=== PATIENT | male | born 1990 | race Caucasian/White ===

== ENCOUNTER 2017-02-28 03:42 | Emergency (ER) | payer OTHER ==
[~2017-02-28] VITALS: Ht 180.3 cm; Wt 72.3 kg
[~2017-02-28 03:42] MED LIST: MOTRIN IB200 MG PO; MOTRIN800 MG PO; NO HOME MEDS; NORCO 5/3251 TABLET PO; TYLENOL WITH C1 EACH PO; VICODIN 5-5001 EACH PO
[2017-02-28] MEDS ORDERED: MOTRIN600 MG PO (04:53)
[2017-02-28] MEDS ORDERED: BACTRIM,SEPT1 TABLET PO (04:53)
[2017-02-28 05:15] VITALS: BP 126/72
== END 2017-02-28 05:19 | disposition home or self-care (01) ==
LOC: EME 03:42
DX: L02.415 Cutaneous abscess of right lower limb (principal); F17.200 Nicotine dependence, unspecified, uncomplicated
CPT/HCPCS: 99281; 99283

== ENCOUNTER 2017-03-01 14:38 | Emergency (ER) | payer OTHER ==
[~2017-03-01] VITALS: Ht 180.3 cm; Wt 72.3 kg
[~2017-03-01 14:38] MED LIST changes: +BACTRIM,SEPT1 TABLET PO; +MOTRIN600 MG PO
[2017-03-01 17:06] VITALS: BP 116/65
== END 2017-03-01 17:06 | disposition home or self-care (01) ==
LOC: EME 14:38
PROC: 0H97XZZ Drainage of Abdomen Skin, External Approach (ICD-10-PCS; principal; 2017-03-01)
DX: L02.211 Cutaneous abscess of abdominal wall (principal); F17.200 Nicotine dependence, unspecified, uncomplicated
CPT/HCPCS: 99281; 99283

== ENCOUNTER 2017-08-19 20:35 | Emergency (ER) | payer OTHER ==
[~2017-08-19] VITALS: Ht 180.3 cm; Wt 75.3 kg
[2017-08-19 21:13] LABS: APPEARANCE CLEAR ((CLEAR)); BILIRUBIN NEGATIVE; BLOOD SMALL; COLOR YELLOW ((YELLOW)); GLUCOSE (STRIP) NEGATIVE; KETONES NEGATIVE; LEUKOCYTES MODERATE; NITRITE NEGATIVE; PROTEIN (STRIP) NEGATIVE; SPECIFIC GRAVITY 1.016 (1.000-1.030); UROBILINOGEN 0.2 MG/DL (0.2-1.0)
[2017-08-19 21:18] LABS: BACTERIA NONE SEEN /HPF; EPITHELIAL CELLS NONE SEEN /HPF; MUCUS TRACE /LPF; RED BLOOD CELLS 15-20 /HPF (0-5); UCUL ADDED? YES; WHITE BLOOD CELLS 40-50 /HPF (0-5)
[2017-08-20] MEDS ORDERED: KEFLEX500 MG PO (00:07)
[2017-08-20 00:21] VITALS: BP 132/79
== END 2017-08-20 00:21 | disposition home or self-care (01) ==
LOC: EME 20:35
DX: N39.0 Urinary tract infection, site not specified (principal); R31.9 Hematuria, unspecified; R36.9 Urethral discharge, unspecified; Z87.891 Personal history of nicotine dependence; Z86.19 Personal history of other infectious and parasitic diseases; Z98.890 Other specified postprocedural states
CPT/HCPCS: 74018; 76770; 81003; 87086; 99281; 99283; J0696

== ENCOUNTER 2017-09-03 22:51 | Emergency (ER) | payer OTHER ==
[~2017-09-03] VITALS: Ht 180.3 cm; Wt 73.3 kg
[~2017-09-03 22:51] MED LIST changes: +KEFLEX500 MG PO
[2017-09-03 23:43] LABS: HEMATOCRIT 39.2 % (38.0-50.0); HEMOGLOBIN 13.8 G/DL (12.5-16.6); MCH 31.9 PG (29.0-34.0); MCHC 35.2 G/DL (30.0-36.0); MCV 90.5 FL (86-99); PLATELET COUNT 243 K/uL (156-360); RBC DIS.WIDTH-CV 12.6 % (11.8-14.6); RBC DIS.WIDTH-SD 41.7 % (39-53); RED BLOOD COUNT 4.33 M/uL (4.00-5.50); WHITE BLOOD COUNT 12.5 K/uL (4.1-10.2)
[2017-09-03 23:55] LABS: CHLORIDE 105 mEq/L (99-109); POTASSIUM 3.7 mEq/L (3.7-5.4); SODIUM 141 mEq/L (136-147)
[2017-09-03 23:57] LABS: GLUCOSE 125 mg/dL (70-99)
[2017-09-04 00:01] LABS: GFR ESTIMATE (CALCULATED) > 59 mL/min/ (58.99-99999); UREA NITROGEN (BUN) 11 mg/dL (9-23)
[2017-09-04] MEDS ORDERED: KEFLEX500 MG PO (00:23)
[2017-09-04] MEDS ORDERED: BACTRIM,SEPT1 TABLET PO (00:23)
[2017-09-04 00:40] VITALS: BP 115/71
== END 2017-09-04 00:44 | disposition home or self-care (01) ==
LOC: EME 22:51
PROVIDERS: Physician Assistant
DX: L03.113 Cellulitis of right upper limb (principal)
CPT/HCPCS: 80048; 83605; 85027; 87040; 99281; 99285; J0696; J1885; J7030